=== PATIENT | female | born 1990 | race Hispanic/Latino ===

== ENCOUNTER 2016-08-29 19:28 | Emergency (ER) | payer OTHER ==
[~2016-08-29] VITALS: Ht 160 cm; Wt 45.4 kg
[2016-08-29] MEDS ORDERED: AMPICILLIN TRI500 MG PO (20:20)
--- NOTE | 2016-08-29 20:25 | ED HEADACHE COMPLAINT ---
History of Present Illness General Chief Complaint: Headache Stated Complaint: "REALLY BAD HEADACHE, NAUSEA" X 2 WEEKS PER PT Source: patient Exam Limitations: no limitations Vital Signs & Intake/Output Vital Signs & Intake/Output Vital Signs Date Time Temp Pulse Resp B/P B/P Pulse O2 O2 Flow FiO2 Mean Ox Delivery Rate 08/291 98.7 81 18 108/62 99 Room Air 08/29 1947 98.7 82 18 112/77 99 Room Air ED Intake and Output 08/30 0000 08/29 1200 Intake Total 50 Output Total Balance 50 Intake, IV 50 Patient 99 lb 15.99 oz Weight Weight Reported by Patient Measurement Method Allergies Coded Allergies: No Known Allergies (08/29/16) Reconcile Medications Amoxicillin/Potassium Clav (Augmentin 875-125 Tablet) 875 MG-125 MG TABLET 1 TAB PO BID sinusitis Ampicillin Trihydrate 500 MG CAPSULE 1 CAP PO ONCE ANTIBIOTIC (Reported) Methylprednisolone. (Medrol) 4 MG TAB.DS.PK 1 DP PO AD headache/sinusitis Metoclopramide HCl (Reglan) 10 MG TABLET 1 TAB PO Q6-8 PRN nausea/headache Triage Note: PT TO TRIAGE WITH C/O MIGRAINE [id number], ALSO NECK PAIN, CHILLS, INTERMITTENT ARMS NUMBNESS, NAUSEA, ABDOMINAL DISCOMFORT. VSS. Triage Nurses Notes Reviewed? yes : No Patient currently breastfeeds: No HPI: Patient is a 26-year-old female presents complaining of headache, chills, congestion, feeling of swollen lymph nodes. Symptoms for approximately 3 weeks, worsening over the past couple of days. Patient started taking amoxicillin yesterday with no improvement. Patient took Excedrin today with improvement for approximately 2 hours then symptoms returned. Associated phonophobia, nausea, and intermittent dizziness. Patient has had headaches previously but reports that this headache is worse than her previous headaches. Patient denies photophobia, sick contacts, recent travel, fevers. (ABELARDO RODRIGUEZ) Past History Travel History Traveled to [place] past 21 day No Medical History Any Pertinent Medical History? none Surgical History Surgical History: non-contributory Psychosocial History What is your primary language [place] Tobacco Use: Never used Family History Hx Contributory? No (ABELARDO RODRIGUEZ) Review of Systems Review of Systems Constitutional: Reports: malaise. Denies: fever. Eyes: Reports: no symptoms. Ears, Nose, Throat, Mouth: Reports: other (nasal congestion). Respiratory: Denies: cough, short of breath. Cardiovascular: Denies: chest pain. Gastrointestinal/Abdominal: Reports: nausea. Denies: abdominal pain, vomiting. Genitourinary: Reports: no symptoms. Musculoskeletal: Reports: no symptoms. Skin: Reports: no symptoms. Neurological/Psychological: Reports: see HPI. Hematologic/Endocrine: Reports: no symptoms. Endocrine: Reports: no symptoms. Immunologic/Allergic: Reports: no symptoms. (ABELARDO RODRIGUEZ) Physical Exam Physical Exam General Appearance: well developed/nourished, alert, awake Head: atraumatic, normal appearance, tenderness bilateral maxillary sinuses Eyes: Bilateral: normal appearance, PERRL, EOMI. Ears, Nose, Throat: clear fluid posterior to bilateral tympanic membranes. Mild nasal congestion. Pharynx normal Neck: normal inspection, supple, full range of motion, trachea midline, negative Kernig's or Brudzinski's sign Respiratory: normal breath sounds, chest non-tender, no respiratory distress, lungs clear Cardiovascular: regular rate/rhythm Gastrointestinal: soft, non-tender Back: normal inspection, normal range of motion Extremities: normal inspection, normal capillary refill, normal range of motion, no edema Psychiatric: awake, alert, oriented x 3 Cranial Nerves: normal hearing, normal speech, PERRL Coordination/Gait: normal finger to nose, normal gait Motor/Sensory: no motor/sensory deficits Skin: intact, normal color, warm/dry Lymphatic: no anterior cervical oneyda Core Measures Severe Sepsis Present: No Septic Shock Present: No (ABELARDO RODRIGUEZ) Progress Differential Diagnosis: carotid dissection, cav sinus thromb, cluster [place], IC mass/tumor, intracranial Hem., meningitis, migraine [place], musculoskeletal pain, sinusitis, SSS thrombosis, subarach. Hem., tension [place], TMJ syndrome, viral cephalgia Plan of Care: Orders Procedure Date/time Status HUMAN BETA HCG SCREEN 08/30 2019 Complete COMPREHENSIVE METABOLIC PANEL 08/30 2019 Complete CBC WITHOUT DIFFERENTIAL 08/30 2019 Complete Laboratory Tests 08/29/162025: Anion Gap 15, Estimated GFR > 60, BUN/Creatinine Ratio 20.0, Glucose 82, Calcium 9.2, Total Bilirubin 1.2, AST 23, ALT 35, Alkaline Phosphatase 75, Total Protein 7.8, Albumin 4.3, Globulin 3.5, Albumin/Globulin Ratio 1.2, Total Beta HCG NEGATIVE, CBC w Diff NO MAN DIFF REQ, RBC 4.38, MCV 92.2, MCH 30.6, RDW 12.9, MPV 11.0 H, Gran % 64.9, Lymphocytes % 24.7, Monocytes % 8.1, Eosinophils % 1.9 , Basophils % 0.4, Absolute Granulocytes 5.2, Absolute Lymphocytes 2.0, Absolute Monocytes 0.6, Absolute Eosinophils 0.1, Absolute Basophils 0, PUBS MCHC 33.2 2109: No significant improvement in headache after Toradol and Reglan. Fioricet and CT scan ordered. Results of CT scan discussed with patient. No acute neurologic abnormalities on exam. Patient appears stable for discharge. (ABELARDO RODRIGUEZ) Diagnostic Imaging: Viewed by Me: CT Scan. Discussed w/RAD: CT Scan. Radiology Impression: PATIENT: KAZ WASHBURN PRESENT AGE: 26 PATIENT ACCOUNT NO: [id number] : 90 LOCATION: [facility] ORDERING PHYSICIAN: ABELARDO QUEZADA SERVICE DATE: 08/29/16 EXAM TYPE: CAT - CT HEAD WO IV CONTRAST EXAMINATION: CT HEAD WITHOUT CONTRAST CLINICAL INFORMATION: Severe headache with dizziness COMPARISON: None TECHNIQUE: Contiguous axial imaging was performed from the skull base to vertex without intravenous administration of contrast. FINDINGS: There is no midline shift. No mass effect. There is no hemorrhage. The basilar cisterns appear patent. The posterior fossa risk grossly within normal limits. No extra-axial collection. Air-fluid level in the visualized left sphenoid sinus and also significant sinus disease in the visualized ethmoids. Possible air-fluid level in the left maxillary sinus. IMPRESSION: Sinus disease and there is an air-fluid level in left sphenoid and possibly left maxillary sinus. Acute sinusitis with need to be considered. Otherwise negative noncontrast CT brain. DICTATED BY: GLORIA FORDE MD DATE/TIME DICTATED:08/29/162216 INSPECTOR ELEVATORS:POLLY DATE/TIME TRANSCRIBED:08/29/162216 CONFIDENTIAL, DO NOT COPY WITHOUT APPROPRIATE AUTHORIZATION. <Electronically signed in Other Vendor System> SIGNED BY: GLORIA FORDE MD 08/29/162222 (ABELARDO RODRIGUEZ) Departure Departure Time of Disposition: 2229 Disposition: HOME OR SELF CARE Condition: Stable Clinical Impression Primary Impression: Sinusitis Qualifiers: Sinusitis location: unspecified location Chronicity: acute Recurrence: non-recurrent Qualified Code: J01.90 - Acute sinusitis, unspecified Referrals: KIRSTY NIELSON DO PATIENT HAS NO PRIMARY CARE DR (PCP/Family) MARTINE BAXTER,ROCK Additional Instructions: Follow up with one of the primary care doctors listed in your discharge paperwork for further evaluation and to establish a primary doctor. Call tomorrow for an appointment. Return to the ER if unable to stay hydrated or worsening of symptoms. Departure Forms: Customer Survey General Discharge Information Prescriptions: Current Visit Scripts Metoclopramide HCl (Reglan) 1 TAB PO Q6-8 PRN nausea/headache #12 TAB Methylprednisolone. (Medrol) 1 DP PO AD #1 DP Amoxicillin/Potassium Clav (Augmentin 875-125 Tablet) 1 TAB PO BID #14 TAB (ABELARDO RODRIGUEZ) PA/TUMBLING AND ROLLING SUPERVISOR Co-Sign Statement Statement: ED Attending supervision documentation- [] I saw and evaluated the patient. I have also reviewed all the pertinent lab results and diagnostic results. I agree with the findings and the plan of care as documented in the PA's/TUMBLING AND ROLLING SUPERVISOR's documentation. [X] I have reviewed the ED Record and agree with the PA's/TUMBLING AND ROLLING SUPERVISOR's documentation. [] Additions or exceptions (if any) to the PAs/TUMBLING AND ROLLING SUPERVISOR's note and plan are summarized below: [] (IRENE BAXTER,BROOKE Tavera)
[2016-08-29 20:34] LABS: ABSOLUTE BASOPHIL COUNT 0 /CUMM (0.0-0.2); ABSOLUTE EOSINOPHIL COUNT 0.1 /CUMM (0.0-0.7); ABSOLUTE GRANULOCYTE CT 5.2 /CUMM (1.4-6.5); ABSOLUTE MONOCYTE COUNT 0.6 /CUMM (0.10-0.60); BASOPHIL % 0.4 % (0.0-2.0); EOSINOPHIL % 1.9 % (0-5); GRANULOCYTE % 64.9 % (42.2-75.2); HEMATOCRIT 40.3 % (37-47); MEAN CORPUSCULAR HGB 30.6 PG (27.0-31.0); MEAN CORPUSCULAR HGB CONC 33.2 G/DL (33.0-37.0); MEAN CORPUSCULAR VOLUME 92.2 FL (81.0-99.0); PLATELET COUNT 174 /CUMM (130-400); RBC DISTRIBUTION WIDTH 12.9 % (11.5-14.5); RED BLOOD CELL CT 4.38 /CUMM (4.20-5.40); WHITE BLOOD CELL COUNT 7.9 /CUMM (4.8-10.8)
--- NOTE | 2016-08-29 22:23 | CT SCAN REPORT ---
EXAMINATION: CT HEAD WITHOUT CONTRAST CLINICAL INFORMATION: Severe headache with dizziness COMPARISON: None TECHNIQUE: Contiguous axial imaging was performed from the skull base to vertex without intravenous administration of contrast. FINDINGS: There is no midline shift. No mass effect. There is no hemorrhage. The basilar cisterns appear patent. The posterior fossa risk grossly within normal limits. No extra-axial collection. Air-fluid level in the visualized left sphenoid sinus and also significant sinus disease in the visualized ethmoids. Possible air-fluid level in the left maxillary sinus. IMPRESSION: Sinus disease and there is an air-fluid level in left sphenoid and possibly left maxillary sinus. Acute sinusitis with need to be considered. Otherwise negative noncontrast CT brain.
[2016-08-29] MEDS ORDERED: REGLAN10 M1 PO (22:33)
[2016-08-29] MEDS ORDERED: AUGMENTIN 875-1 EACH PO (22:33)
[2016-08-29] MEDS ORDERED: MEDROL4 M2 PO (22:33)
[2016-08-29 22:41] VITALS: BP 108/62
== END 2016-08-29 22:54 ==
LOC: ERH 19:28
PROVIDERS: Physician Assistant
DX: J32.9 Chronic sinusitis, unspecified (principal); R11.0 Nausea
CPT/HCPCS: 96374; 96375; J1885; J2765; J3490